=== PATIENT | female | born 1980 | race Caucasian/White ===

== ENCOUNTER 2020-02-24 10:01 | Outpatient (REF) | payer MEDICAID, SELFPAY ==
--- NOTE | 2020-02-24 | US_ITS ---
EXAMINATION: US COMPLETE ABDOMEN WITH LIVER ELASTOGRAPHY CLINICAL INFORMATION: Chronic viral hepatitis C COMPARISON: None. TECHNIQUE: Real-time imaging of the abdominal viscera. Noninvasive ultrasound liver fibrosis assessment is performed using [employer]er[employer] ElastPQ point quantification shear wave elastography (pSWE) with a 5 MHz transducer. Multiple elastography samples are obtained. FINDINGS: PANCREAS: The visualized pancreatic head and body are normal in appearance. The remainder of the pancreas is obscured from visualization by the overlying bowel gas. ABDOMINAL AORTA: The proximal, middle, and distal aortic segments are normal in caliber. INFERIOR VENA CAVA: Visualized portions are normal. LIVER: Normal. The liver demonstrates size and contour. No focal lesion or intrahepatic biliary duct dilatation. The right lobe measures 16.3 cm in length. The left lobe measures 11.1 cm in length. There are areas of increased echogenicity in the left lobe of liver suggesting hepatic steatosis. There is an ill-defined 7 mm hypoechoic structure in the left lobe of liver. This has greater internal echogenicity than would be expected for a simple cyst. Shear wave elastography provides a median stiffness of 1.92 m/s (reference: normal median stiffness is 0.81 - 1.22 m/s). The IQR/median stiffness to assess sampling precision is 0.08 (reference: optimal IQR/median stiffness is under 0.3). GALLBLADDER: Normal. The gallbladder is physiologically distended without evidence of stones, sludge, polyps, wall thickening or pericholecystic fluid. COMMON BILE DUCT: Normal in caliber measuring 0.8 cm in diameter in the angy hepatis. It is not seen at the level of the pancreatic head. 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 No hydronephrosis. No renal calculi or focal parenchymal lesions. The kidney measures 15.9 cm in maximum dimension. LEFT KIDNEY: Normal. No hydronephrosis. No renal calculi or focal parenchymal lesions. The kidney measures 13.2 cm in maximum dimension. SPLEEN: The spleen is borderline enlarged, 13.3 cm in maximum dimension. FREE FLUID: None. US/US abdomen comp w elastography IMPRESSION: 1. There are geographic areas of increased echogenicity in the left lobe of the liver suggesting hepatic steatosis. 2. There is an ill-defined 7 mm hypoechoic structure in the left lobe of liver. This is greater internal echogenicity than would be expected for a simple cyst making it indeterminate. Given the history of hepatitis C, consider dynamic contrast-enhanced liver MRI for definitive evaluation. 3. The right kidney is elongated with prominent soft tissue centrally suggesting a partially duplicated collecting system. 4. Borderline splenomegaly. 5. Elastography: Liver elastography measurements are consistent with a moderate risk for clinically significant liver fibrosis (METAVIR Stage F2-F3).
== END 2020-02-24 10:02 | disposition home or self-care (01) ==
LOC: HO.US 10:01
PROVIDERS: Referring Provider Family Medicine; Visit Provider Internal Medicine
DX: B18.2 Chronic viral hepatitis C (principal)
CPT/HCPCS: 76705; 76981